=== PATIENT | male | born 1990 | race Caucasian/White ===

== ENCOUNTER 2022-10-19 15:21 | Emergency (ER) | payer OTHER ==
[2022-10-19 15:54] VITALS: BP 130/76; PULSE 95; RESP 18; TEMP 98; BMI 39.3
[2022-10-19] MEDS ORDERED: KETOROLAC TROMETHAMINE 30 MG/1 ML VIAL IM ONE (16:50)
[2022-10-19] MEDS ORDERED: KETOROLAC TROMETHAMINE 30 MG/1 ML VIAL ONE (17:11)
[2022-10-19 17:34] LABS: PH,URINE 6.5 (5.0-8.0); URINE APPEARANCE CLEAR; URINE BILIRUBIN NEGATIVE (NEGATIVE); URINE COLOR YELLOW; URINE GLUCOSE (UA) NEGATIVE (NEGATIVE); URINE KETONE TRACE (NEGATIVE); URINE LEUK ESTERASE NEGATIVE (NEGATIVE); URINE NITRITE NEGATIVE (NEGATIVE); URINE PROTEIN NEGATIVE (NEGATIVE); URINE UROBILINOGEN 0.2 mg/dL (0.2-1.0)
== END 2022-10-19 18:12 | disposition home or self-care (01) ==
LOC: JERFT 15:21 → JER 15:21 → JERFT 18:12
PROC: 3E0233Z Introduction of Anti-inflammatory into Muscle, Percutaneous Approach (ICD-10-PCS; principal; 2022-10-19)
DX: M54.41 Lumbago with sciatica, right side (principal)
CPT/HCPCS: 81003; 87086; 99284-25

== ENCOUNTER 2023-01-17 07:10 | Emergency (ER) | payer OTHER ==
[2023-01-17 07:22] VITALS: BP 114/76; PULSE 86; RESP 18; TEMP 97; BMI 39.3
[2023-01-17] MEDS ORDERED: IBUPROFEN 400 MG TABLET (FP) PO ONE (08:59)
[2023-01-17] MEDS ORDERED: IBUPROFEN 600 MG TABLET (FP) PO ONE (09:03)
== END 2023-01-17 09:40 | disposition home or self-care (01) ==
LOC: JER 07:10
DX: M65.4 Radial styloid tenosynovitis [de Quervain] (principal)
CPT/HCPCS: 73090-TC-RT-FY; 73110-TC-RT-FY; 73130-TC-RT-FY; 99284-25